=== PATIENT | female | born 1975 | race American Indian/Alaskan Native ===

== ENCOUNTER 2016-11-05 13:58 | Outpatient (CLI) | payer BC ==
--- NOTE | 2016-11-05 15:37 | Mammography Report ---
BILATERAL DIGITAL SCREENING MAMMOGRAM with CAD: 11/05/16 13:58:00 CLINICAL: Routine screening. COMPARISON:11/02/15 bilateral mammogram and 05/08/16 right mammogram. FINDINGS: The breasts are predominantly fatty with a few bilateral scatter fibroglandular densities. Previously identified asymmetries are less prominent than on the last mammogram. No mass, architectural distortion or suspicious calcifications. IMPRESSION: Negative mammogram. However, a six-month followup right breast ultrasound was recommended on the last exam. BI-RADS CATEGORY: 0--Needs Additional Imaging RECOMMENDATION: Right breast ultrasound to follow up abnormalities identified by ultrasound. COMMENT: Patient follow-up letters are generated by our [employer] application.
--- NOTE | 2016-11-05 15:41 | Ultrasound Report ---
RIGHT BREAST ULTRASOUND: 11/05/16 13:58:00 CLINICAL: Ultrasound was performed to follow up abnormalities identified on the previous ultrasound 05/08/16 COMPARISON: 05/08/16 and 11/02/15 FINDINGS: Ultrasound of the right breast demonstrated a subareolar cyst measuring 5 x 6 x 4 mm. It has not changed in size. However, color Doppler demonstrates some blood flow the margin as well as blood flow within the cyst.No solid mass is identified. A complex cyst at 9 o'clock 4 cm from the nipple measures 6 x 4 x 7 mm and a cyst at 10 o'clock 4 cm from the nipple measures 3 x 3 x 3 mm. IMPRESSION: A 6 mm subareolar cyst with blood flow at its margin and within the cyst. BI-RADS 4--Suspicious RECOMMENDATION: Ultrasound guided cyst aspiration of the right breast.
== END 2016-11-05 13:59 | disposition home or self-care (01) ==
LOC: SPVWC 13:58
PROVIDERS: ATTEND Surgery
DX: Z12.31 Encounter for screening mammogram for malignant neoplasm of breast (principal); N60.01 Solitary cyst of right breast; N63 Unspecified lump in breast
CPT/HCPCS: 76642; G0202; 77067

== ENCOUNTER 2016-11-13 12:40 | Outpatient (CLI) | payer BC ==
--- NOTE | 2016-11-13 15:25 | Ultrasound Report ---
ULTRASOUND GUIDED ASPIRATION RIGHT BREAST: 11/13/16 CLINICAL: A 5 mm subareolar cyst at 12 o'clock with blood flow at the margin of the cyst. COMPARISON: 11/05/16 FINDINGS: The procedure was explained to the patient and informed consent was obtained. Ultrasound demonstrated the previously described 5 mm subareolar cyst at 12 o'clock. Again, color Doppler demonstrated blood flow at the margin or within the lesion. The skin was cleansed with Betadine and anesthetized with 1% lidocaine. A 20-gauge needle was introduced into the cyst with ultrasound guidance. Scant brownish fluid was removed. The fluid was placed in Cytolyte and sent to the lab for analysis. A clip was placed at the site of the aspiration. The patient tolerated the procedure well and there were no apparent complications. IMPRESSION: Uncomplicated cyst aspiration with clip placement right breast.
== END 2016-11-13 12:41 | disposition home or self-care (01) ==
LOC: SPVWC 12:40
PROVIDERS: ATTEND Surgery
DX: N60.01 Solitary cyst of right breast (principal)
CPT/HCPCS: 19000; A4648; 88112

== ENCOUNTER 2017-10-07 13:41 | Outpatient (CLI) | payer BC ==
--- NOTE | 2017-10-08 10:48 | Mammography Report ---
BILATERAL DIGITAL SCREENING MAMMOGRAM with CAD: 10/07/17 13:41:00 CLINICAL: Routine screening.Status post benign right cyst aspiration 11/13/16. COMPARISON:11/05/16 FINDINGS: There are scattered areas of fibroglandular density. No mass, architectural distortion or suspicious calcifications. IMPRESSION: No mammographic evidence of malignancy. BI-RADS CATEGORY: 2 -- Benign RECOMMENDATION: Routine mammographic screening in one year. COMMENT: Patient follow-up letters are generated by our [employer] application.
== END 2017-10-07 13:42 | disposition home or self-care (01) ==
LOC: SPVWC 13:41
PROVIDERS: ATTEND Surgery
DX: Z12.31 Encounter for screening mammogram for malignant neoplasm of breast (principal); Z98.890 Other specified postprocedural states
CPT/HCPCS: 77067

== ENCOUNTER 2020-11-02 12:50 | Outpatient (CLI) | payer BC ==
--- NOTE | 2020-11-02 14:43 | Mammography Report ---
DIGITAL SCREENING MAMMOGRAM WITH CAD, 11/02/2020 CLINICAL INFORMATION / INDICATION: Routine screening mammography. TECHNIQUE: Digital bilateral 2D mammography was obtained in the craniocaudal and mediolateral obliqu e projections. This examination was interpreted with the benefit of Computer-Aided Detection analysis . COMPARISON: 10/13/2018, 10/07/2017 FINDINGS: Breast Density: The breasts are heterogeneously dense, which may obscure small masses. No dominant mass, suspicious calcifications, or architectural distortion in either breast. Biopsy clip is again noted in the right breast. IMPRESSION: No mammographic evidence of malignancy. Follow up recommendation: Routine yearly BI-RADS Category 2: Benign. A "normal" or negative report should not discourage follow up or biopsy of a clinically significant f inding. A written summary of these findings will be mailed to the patient. The patient will be entered into a mammography reporting system which will generate a reminder letter for the patient's next appointmen t at the appropriate interval. The [employer] recommends yearly mammograms starting at age 40 and continuing as l samy as a woman is in good health. Breast MRI is recommended for women with an approximate 20-25% or greater lifetime risk of breast cancer, including women with a strong family history of breast or ova gianfranco cancer or who have been treated for Hodgkin's disease. Signer Name: Betty Christine MD Signed: 11/02/2020 2:39 PM Workstation Name: [id number]
== END 2020-11-02 12:51 | disposition home or self-care (01) ==
LOC: SPVWC 12:50
PROVIDERS: ATTEND Internal Medicine
DX: Z12.31 Encounter for screening mammogram for malignant neoplasm of breast (principal)
CPT/HCPCS: 77067